=== PATIENT | male | born 1955 | race Caucasian/White ===

== ENCOUNTER 2018-07-29 07:13 | Day surgery (SDC) | payer OTHER ==
[~2018-07-29] VITALS: Ht 177.8 cm; Wt 106.6 kg
[2018-07-29] VITALS (7 sets, daily range): BP systolic 124–182; BP diastolic 72–86
[2018-07-29] MEDS ORDERED: EPINEPHrine 1mg/1ml Amp ONE (07:14)
[2018-07-29] MEDS ORDERED: Lidocaine 1% MPF 10mg/ml 5ml ONE (07:14)
[2018-07-29] MEDS ORDERED: BSS 500ml btl ONE (07:15)
[2018-07-29] MEDS ORDERED: Sodium Hyaluronate 14 mg/ml 0.85ml ONE (07:15)
[2018-07-29] MEDS ORDERED: Povidone-Iodine 5% opth solution ONE (07:15)
[2018-07-29] MEDS ORDERED: BSS 15ml BTL ONE (07:15)
[2018-07-29] MEDS ORDERED: Dexamethasone 4mg/ml vial ONE (07:15)
--- NOTE | 2018-07-29 07:47 | Pre-Procedure Note/Attestation ---
Pre-Procedure Note/Attestation Complete Prior to Procedure Planned Procedure: left Procedure Narrative: cataract extraction with implant left eye Indications for Procedure Pre-Operative Diagnosis: cataract left eye Attestation I attest that I discussed the nature of the procedure; its benefits; risks and complications; and alternatives (and the risks and benefits of such alternatives ), prior to the procedure, with the patient (or the patient's legal patient representative). I attest that, if there was a reasonable possibility of needing a blood transfusion, the patient (or the patient's legal patient representative) was given the [facility] standardized written summary, pursuant to the [place] Elva Blood Safety Act ([place] Health and Safety Code # 1645, as amended). I attest that I re-evaluated the patient just prior to the surgery and that there has been no change in the patient's H&P, except as documented below: Krystian Marvin MD Jul 29, 2018 07:47
[2018-07-29] MEDS: Flurbiprofen 0.03% Opth Sol 2.5ml LEFT EYE SCH ×3 (07:49→08:10)
[2018-07-29] MEDS: Vigamox Opth Soln 3ml LEFT EYE SCH ×3 (07:49→08:07)
[2018-07-29] MEDS: Tropicamide 1% Opth 15ml Soln LEFT EYE SCH ×3 (07:49→08:07)
[2018-07-29] MEDS: Akten 3.5% 1ml Btl LEFT EYE SCH ×3 (07:50→08:07)
[2018-07-29] MEDS: Phenylephrine 2.5% Op 2ml Soln LEFT EYE SCH ×3 (07:50→08:07)
[2018-07-29] MEDS: Tobradex Opth Susp 2.5ml LEFT EYE SCH ×3 (07:50→08:07)
[2018-07-29] MEDS ORDERED: Midazolam 2mg/2ml Inj ONE (08:03)
[2018-07-29] MEDS ORDERED: GLIPIZIDE10 MG PO (08:23)
[2018-07-29] MEDS ORDERED: VITAMIN D400 INTLU ORAL (08:23)
[2018-07-29] MEDS ORDERED: ATORVASTATIN CA20 MG ORAL (08:23)
[2018-07-29] MEDS ORDERED: CENTRUM SILVER1 EAC4 PO (08:23)
[2018-07-29] MEDS ORDERED: CINNAMON PLUS1 EACH PO (08:23)
[2018-07-29] MEDS ORDERED: ALLOPURINOL300 M1 ORAL (08:23)
[2018-07-29] MEDS ORDERED: BENAZEPRIL HCL20 MG ORAL (08:23)
[2018-07-29] MEDS ORDERED: ACTOS30 MG ORAL (08:23)
[2018-07-29] MEDS ORDERED: METFORMIN HCL1000 M1 ORAL (08:23)
[2018-07-29] MEDS ORDERED: ASPIR 8181 MG ORAL (08:23)
[2018-07-29] MEDS ORDERED: Sterile Water Irrig 1000ml IRRIG ONE (08:30)
[2018-07-29] MEDS ORDERED: LR 1000ml ONE (08:30)
[2018-07-29] MEDS ORDERED: fentaNYL 100 mcg/2 mL IV ONE (08:30)
[2018-07-29] MEDS ORDERED: NS Irrig 1000ml ONE (08:30)
[2018-07-29] MEDS ORDERED: Propofol 200mg/20ml IV ONE (08:30)
--- NOTE | 2018-07-29 08:52 | Anethesia Preoperative Eval ---
Anesthesia Pre-op PMH/ROS General Date of Evaluation: Jul 29, 2018 Time of Evaluation: 08:25 Anesthesiologist: Dede ASA Score: ASA 3 Mallampati Score Class I : Soft palate, uvula, fauces, pillars visible Class II: Soft palate, uvula, fauces visible Class III: Soft palate, base of uvula visible Class IV: Only hard plate visible Mallampati Classification: Class II Surgeon: Yon Diagnosis: L eye cataract Surgical Procedure: L eye cataract extraction Anesthesia History: none Family History: no anesthesia problems Allergies: Coded Allergies: ENALAPRIL (Verified Allergy, Mild, 07/29/18) RASH VALSARTAN (Verified Allergy, Mild, 07/29/18) RASH Medications: see eMAR Patient NPO?: Yes Past Medical History Cardiovascular: Reports: HTN; Denies: CAD, [place], valve dz, arrhythmia, other Pulmonary: Reports: KHADRA; Denies: asthma, COPD, other Gastrointestinal/Genitourinary: Reports: GERD; Denies: CRI, ESRD, other Neurologic/Psychiatric: Denies: dementia, CVA, depression/anxiety, TIA, other Endocrine: Reports: DM; Denies: hypothyroidism, steroids, other HEENT: Reports: cataract (L), cataract (R); Denies: glaucoma, QUILEUTE (L), QUILEUTE (R), other Musculoskeletal/Integumentary: Denies: OA, RA, DJD, DDD, edema, other Other: obesity PMH Narrative: as above PSxH Narrative: Hernia repair, cholecystectomy Anesthesia Pre-op Phys. Exam Physician Exam Last Vital Signs Date Time Temp Pulse Resp B/P (MAP) Pulse Ox O2 Delivery O2 Flow Rate FiO2 07/29/18 08:06 97.3 73 18 127/78 98 Room Air Constitutional: NAD Neurologic: CN 2-12 intact Cardiovascular: RRR, no M/R/G Respiratory: CTA Gastrointestinal: S/NT/ND Airway Exam Mallampati Score: Class II MO: full Neck: short ROM: limited Teeth: intact Dentures: no upper, no lower Anesthesia Pre-op A/P Labs see chart Studies Pre-op Studies: EKG - NSR Risk Assessment & Plan Assessment: ASA 2 Plan: MAC Status Change Before Surgery: No Pre-Antibiotics Drug: none Javi Aguayo MD Jul 29, 2018 08:52
[2018-07-29] MEDS ORDERED: LR 1000ml 1,000 ML IVLG SCH (08:53)
[2018-07-29] MEDS ORDERED: DiphenhydrAMINE 50mg/ml Inj IVP PRN (09:00)
[2018-07-29] MEDS ORDERED: fentaNYL 100 mcg/2 mL IV PRN (09:00)
--- NOTE | 2018-07-29 09:01 | Brief Operative Note ---
Immediate Post Operative Note Operative Note Pre-op Diagnosis: cataract left eye Procedure: phacoemulsification of cataract with implant left eye Post-op Diagnosis: same as pre-op Surgeon: krystian dubon Emergency Medcl Emt: none Anesthesiologist: harshal finney md Anesthesia: MAC Specimen: none Complications: none Condition: stable Fluids: none Estimated Blood Loss: none Drains: none Implant(s) used?: Yes Krystian Dubon MD Jul 29, 2018 09:01
--- NOTE | 2018-07-29 09:11 | Immediate Post-Op Evaluation ---
Immediate Post-Op Evalulation Immediate Post-Op Evalulation Procedure: L eye cataract extraction with IOL Date of Evaluation: Jul 29, 2018 Time of Evaluation: 09:11 IV Fluids: 300 Blood Products: none Estimated Blood Loss: none Urinary Output: none Blood Pressure Systolic: 124 Blood Pressure Diastolic: 72 Pulse Rate: 78 Respiratory Rate: 20 O2 Sat by Pulse Oximetry: 99 Temperature (Fahrenheit): 97.6 Pain Score (1-10): 2 Nausea: No Vomiting: No Complications none Patient Status: awake, patent, none Hydration Status: adequate Javi Aguayo MD Jul 29, 2018 09:11
--- NOTE | 2018-07-29 16:54 | Cardiology Report ---
APPROVED REPORT EKG Measurement Heart [id number] Normal sinus rhythm Normal ECG
--- NOTE | 2018-07-29 17:30 | Operative Note - Dictated ---
DATE OF OPERATION: 07/29/2018 PREOPERATIVE DIAGNOSIS: Nuclear sclerotic and posterior subcapsular cataract, left eye. POSTOPERATIVE DIAGNOSIS: Nuclear sclerotic and posterior subcapsular cataract, left eye. PROCEDURE: Phacoemulsification cataract, left eye with placement of posterior chamber intraocular lens. SURGEON: Krystian Marvin M.D. SERVICES MGR: None. ANESTHESIA: MAC/topical. ANESTHESIOLOGIST: Javi Aguayo M.D. INDICATION FOR PROCEDURE: Poor vision, left eye. DESCRIPTION OF FINDINGS: Dense nuclear sclerotic and posterior subcapsular cataract, left eye. DESCRIPTION OF PROCEDURE: The patient received a topical anesthetic block consisting of 3.5% Akten eye drops. The eye was then prepped and draped in the usual manner. A lid speculum was placed. An operating Zeiss microscope was positioned. The temporal corneal groove was made with a isa blade. A SuperSharp blade made a stab incision at the 6 o'clock position. A 0.1 mL of 1% nonpreserved intracameral lidocaine was injected. Healon was instilled into the anterior chamber and a 2.5/2.8 mm trapezoidal isa blade was used to complete the temporal corneal wound. A cystotome was used to create an anterior capsular flap. Utrata forceps were used to complete the capsulorrhexis. BSS on a cannula was used to hydrodissect the nucleus. The lens nucleus phacoemulsified in a phaco-fracture technique. Remaining cortical material was removed with the I/A and the posterior capsule was polished with the I/A on Cap vac. Healon was instilled in a capsular bag and anterior chamber and a TECNIS preloaded foldable one-piece posterior chamber intraocular lens model PCB00, power 18.5 diopter, serial #[id number] was placed into the capsular bag. The I/A tip was used to remove the Healon and position the lens. The wound edge was hydrated with BSS and a blunt-tipped cannula. The wound was checked and found to be watertight. The lid speculum was removed and a drop of TobraDex and Vigamox was placed. A clear plastic shield was taped over the eye. The patient tolerated the procedure well and left the operating room in good condition. Krystian Marvin M.D. ([facility]) DR: KRYSTYNA JOB#: [id number] CC:
== END 2018-07-29 10:10 | disposition home or self-care (01) ==
LOC: EDSEX 07:13 → SUR 07:13
DX: H25.12 Age-related nuclear cataract, left eye (principal); H25.042 Posterior subcapsular polar age-related cataract, left eye; I10 Essential (primary) hypertension; K21.9 Gastro-esophageal reflux disease without esophagitis; G47.33 Obstructive sleep apnea (adult) (pediatric); E11.9 Type 2 diabetes mellitus without complications; Z90.49 Acquired absence of other specified parts of digestive tract; Z88.8 Allergy status to other drugs, medicaments and biological substances
CPT/HCPCS: 66984; 82962; 93005; J0171; J1100; J2250; J2704; J3010; V2632; 94003; 94150